=== PATIENT | male | born 1950 | race Two or more races ===

== ENCOUNTER 2023-07-29 19:43 | Emergency (ER) | payer OTHER ==
[~2023-07-29] VITALS: Ht 170.2 cm; Wt 68.2 kg
[2023-07-29] MEDS ORDERED: DexAMETHasone SOD PHOS 10MG/1ML VIAL INJ IM ONE (20:30)
[2023-07-29] MEDS ORDERED: TETANUS-DIPTH-ACEL PERTUSSIS 0.5ML SYR Tdap IM ONE (20:30)
[2023-07-29] MEDS ORDERED: KETOROLAC TROMETH 60MG/2ML VIAL IM ONE (20:30)
[2023-07-29] MEDS ORDERED: CEPH250C PO (20:38)
[2023-07-29] MEDS ORDERED: ACET500T58 PO (20:38)
[2023-07-30 01:38] VITALS: BP 154/79; PULSE 92; RESP 17; TEMP 98; O2SAT 98
== END 2023-07-30 01:47 | disposition home or self-care (01) ==
LOC: ER 19:47
DX: S80.862A Insect bite (nonvenomous), left lower leg, initial encounter (principal); S80.861A Insect bite (nonvenomous), right lower leg, initial encounter; L08.89 Other specified local infections of the skin and subcutaneous tissue; W57.XXXA Bitten or stung by nonvenomous insect and other nonvenomous arthropods, initial encounter; Y93.89 Activity, other specified; Y92.89 Other specified places as the place of occurrence of the external cause; Y99.8 Other external cause status
CPT/HCPCS: 90471; 90715; 96372; 99284; J1100; J1885

== ENCOUNTER 2025-06-17 23:47 | Emergency (ER) | payer OTHER ==
[~2025-06-17] VITALS: Ht 160 cm; Wt 70.5 kg
[~2025-06-17 23:47] MED LIST: ACET500T58 PO; CEPH250C PO
[2025-06-17 23:51] VITALS: BP 159/97; PULSE 92; RESP 18; TEMP 98.6; O2SAT 93
[2025-06-18] MEDS ORDERED: SULFAMETHOX W/TRIMETH(800/160MG) DS TAB PO ONE (02:45)
[2025-06-18] MEDS ORDERED: BACDST PO (02:46)
[2025-06-18] MEDS ORDERED: MUPI2CRE17 EX (02:47)
--- NOTE | 2025-06-18 03:43 | ED.PDOC ---
History of Present Illness HPI Comments 74 y/o M presents with c/c red rash patches to his thighs, right-upper back, and left foot. Poor historian. Endorses on ongoing symptoms for an extensive duration of time. States on being told on having shingles. Denies any fever, chills, pain or further associated symptoms. Chief Complaint: Rash Time Seen by MD: 02:40 Reviewed Notes: Nurses Notes, Medications, Allergies Allergies: Coded Allergies: Penicillins (Verified Allergy, Unknown, 07/29/23) Home Meds Active Scripts Mupirocin Calcium (Topical) (MUPIROCIN) 2 % Cre, 2 % EX Q6HP for 10 Days, #10 CRE Prov:ROOSEVELT FOURNIER MD 06/18/25 Sulfamethoxazole W/Trimethopri (Bactrim Ds Tablet) 1 Tab Tb, 1 TAB PO BID for 7 Days, #14 TAB Prov:ROOSEVELT FOURNIER MD 06/18/25 Acetaminophen (Acetaminophen) 500 Mg Tab, 500 MG PO Q4HP PRN, #30 TAB Prov:GEO YAÑEZ PAC 07/29/23 Cephalexin (KEFLEX CAPSULE) 250 Mg Cp, 1 CAP PO QID for 7 Days, #28 CAP Prov:GEO YAÑEZ PAC 07/29/23 Information Source: Patient Mode of Arrival: Ambulatory Past Medical History PAST MEDICAL HISTORY: Denies Surgical History: Denies all surgeries Family History Family History: Reviewed,noncontributory to illness, No family hx of Cancer, No family hx of DM, No family hx of Heart esther, No family hx of HTN, No family hx ofKidney esther, No family hx of Liver esther, No family hx of Lung esther, No family hx of Stroke Social History Smoker: Non-Smoker Alcohol: Denies ETOH Use Drugs: Denies Drug Use Lives In: Home All Other Systems: Reviewed and Negative (As per HPI) Physical Exam General Appearance: No Apparent Distress, Normal HEENT: Normal ENT Inspection, Pharynx Normal, TMs Normal Neck: Full Range of Motion, Non-Tender, Normal, Normal Inspection Respiratory: Chest Non-Tender, Lungs Clear, No Accessory Muscle Use, No Respiratory Distress, Normal Breath Sounds Cardiovascular: No Edema, No JVD, No Murmur, No Gallop, Normal Peripheral Pulses, Regular Rate/Rhythm Breast Exam: Deferred Gastrointestinal: No Organomegaly, Non Tender, No Pulsatile Mass, Normal Bowel Sounds, Soft Genitalia: Deferred Pelvic: Deferred Rectal: Deferred Extremities: No calf tenderness, Normal capillary refill, Normal inspection, Normal range of motion, Non-tender, No pedal edema Musculoskeletal : Apperance: Normal Neurologic: Alert, weight shifter II-XII nml as Tested, No Motor Deficits, Normal Affect, Normal Mood, No Sensory Deficits Cerebellar Function: Normal Reflexes: Normal Skin: Dry, Normal Color, Rash (2cm diameter erythema to right thigh), Warm Lymphatic: No Adenopathy Was a procedure done? Was a procedure done?: No Differential Dx Considerations may include: dermatitis, cellulitis, among others X-Ray, Labs, Meds, VS Vital Signs Date Time Temp Pulse Resp B/P (MAP) Pulse Ox O2 Delivery O2 Flow Rate FiO2 06/17/25 23:51 98.6 92 18 159/97 93 98.6 Time of 1ST Reevaluation: 03:10 Reevaluation 1ST: Unchanged Patient Education/Counseling: Diagnosis, Treatment, Need For Follow Up Family Education/Counseling: No Family Present SEPSIS Sepsis Screen Date sepsis recognized/suspect: Jun 17, 2025 Time Sepsis recognized/suspect: 2350 Recent Procedure: No On Antibiotic Therapy: No Respiratory Rate >20: No Heart Rate >90: Yes Temp<36 C (96.8 F) or >38.3 C: No SBP <90 or MAP <65 mmHG: No New Acute Mental Status Change: No Is the patient on CPAP, BIPAP,: No Vital Signs Date Time Temp Pulse Resp B/P (MAP) Pulse Ox O2 Delivery O2 Flow Rate FiO2 06/17/25 23:51 98.6 92 18 159/97 93 98.6 Departure 1 Departure Time of Disposition: 05:00 Impression: Primary Impression: Cellulitis of right thigh Disposition: HOME / SELF CARE / HOMELESS Condition: Stable Additional Instructions: Follow up with your primary physician Return to the Emergency Department for any worsening symptoms or concerns e-Prescriptions Mupirocin Calcium (Topical) (MUPIROCIN) 2 % Cre 2 % EX Q6HP for 10 Days, #10 CRE Prov: ROOSEVELT FOURNIER MD 06/18/25 Sulfamethoxazole W/Trimethopri (Bactrim Ds Tablet) 1 Tab Tb 1 TAB PO BID for 7 Days, #14 TAB Prov: ROOSEVELT FOURNIER MD 06/18/25 Discharged With: Self Critical Care Note Critical Care Time?: No Stability Stability form required: No Heart Score Heart Score: Heart Score Response (Comments) Value History N/A 0 EKG N/A 0 Age N/A 0 Risk Factors N/A 0 Troponin N/A 0 Total 0 I personally scribed for ROOSEVELT FOURNIER MD ([email or web address]) on 06/18/25 at 03:43. Electronically submitted by Dustin Narvaez ([email or web address]). ROOSEVELT FOURNIER MD Jun 18, 2025 03:43
== END 2025-06-18 05:49 | disposition home or self-care (01) ==
LOC: ER 23:47
DX: L03.115 Cellulitis of right lower limb (principal); B02.9 Zoster without complications; Z88.0 Allergy status to penicillin

== ENCOUNTER 2025-07-10 14:25 | Emergency (ER) | payer OTHER ==
[~2025-07-10] VITALS: Ht 162.6 cm; Wt 73.8 kg
[~2025-07-10 14:25] MED LIST changes: +BACDST PO; +MUPI2CRE17 EX
--- NOTE | 2025-07-10 15:11 | ED.PDOC ---
History of Present Illness(SKN HPI Comments 74M PRESENTS TO THE ER W/ PRIOR MHX OF SHINGLES FOR THE C/C OF SHINGLES. PT C/O A POSSIBLE INSECT BITE TO THE LEFT BICEP AND THE RIGHT LOWER LEG. C/O ITCHING. NO OTHER COMPLAINT. Chief Complaint: Rash Time Seen by MD: 15:10 History of Present Illness: Nurses Notes, Medications, Allergies Allergies: Coded Allergies: Penicillins (Verified Allergy, Unknown, 07/29/23) Home Meds Active Scripts Mupirocin Calcium (Topical) (MUPIROCIN) 2 % Cre, 2 % EX Q6HP for 10 Days, #10 CRE Prov:ROOSEVELT FOURNIER MD 06/18/25 Sulfamethoxazole W/Trimethopri (Bactrim Ds Tablet) 1 Tab Tb, 1 TAB PO BID for 7 Days, #14 TAB Prov:ROOSEVELT FOURNIER MD 06/18/25 Acetaminophen (Acetaminophen) 500 Mg Tab, 500 MG PO Q4HP PRN, #30 TAB Prov:GEO YAÑEZ PAC 07/29/23 Cephalexin (KEFLEX CAPSULE) 250 Mg Cp, 1 CAP PO QID for 7 Days, #28 CAP Prov:GEO YAÑEZ PAC 07/29/23 Information Source: Patient Mode of Arrival: Ambulatory Severity: Moderate Timing: Hours Duration: Since onset, Hours Prehospital treatment: None Location: Arm, Leg Mechanism: Spontaneous Onset Developed: Rash Object: None Condition of Object: None Wound Type: None Immunization Status of Animal: NA Tetanus: Unknown History of: None Associated Signs and Symptoms: None Past Medical History PAST MEDICAL HISTORY: Denies Surgical History: Denies all surgeries Family History Family History: Reviewed,noncontributory to illness, Unknown Social History Smoker: Non-Smoker Alcohol: Denies ETOH Use Drugs: Denies Drug Use Lives In: Home Constitutional: denies: chills, diaphoresis, fatigue, fever, malaise, sweats, weakness, others EENTM: denies: blurred vision, double vision, ear bleeding, ear discharge, ear drainage, ear pain, ear ringing, eye pain, eye redness, hearing loss, mouth pain, mouth swelling, nasal discharge, nose bleeding, nose congestion, nose pain, photophobia, tearing, throat pain, throat swelling, voice changes, others Respiratory: denies: cough, hemoptysis, orthopnea, SOB at rest, shortness of breath, SOB with excertion, stridor, wheezing, others Cardiovascular: denies: chest pain, dizzy spells, diaphoresis, Dyspnea on exertion, edema, irregular heart beat, left arm pain, lightheadedness, palpitations, PND, syncope, others Gastrointestinal: denies: abdomen distended, abdominal pain, blood streaked bowels, constipated, diarrhea, dysphagia, difficulty swallowing, hematemesis, melena, nausea, poor appetite, poor fluid intake, rectal bleeding, rectal pain, vomiting, others Genitourinary: denies: burning, dysuria, flank pain, frequency, hematuria, incontinence, penile discharge, penile sore, pain, testicle pain, testicle swelling, urgency, others Neurological: denies: dizziness, fainting, headache, left sided numbness, left sided weakness, numbness, paresthesia, pre-existing deficit, right sided numbness, right sided weakness, seizure, speech problems, tingling, tremors, weakness, others Musculoskeletal: denies: back pain, gout, joint pain, joint swelling, muscle pain, muscle stiffness, neck pain, others Integumetry: reports: rash; denies: bruises, change in color, change in hair/nails, dryness, laceration, lesions, lumps, wounds, others Allergic/Immunocompromised: denies: Difficulty Healing, Frequent Infections, Hives, Itching, others Hematologic/Lymphatic: denies: anemia, blood clots, easy bleeding, easy bruising, swollen glands, others Endocrine: denies: excessive hunger, excessive sweating, excessive thirst, excessive urination, flushing, intolerance to cold, intolerance to heat, unexplained weight gain, unexplained weight loss, others Psychiatric: denies: anxiety, bipolar disorder, depression, hopeless, panic disorder, schizophrenia, sleepless, suicidal, others All Other Systems: Reviewed and Negative Physical Exam General Appearance: No Apparent Distress, Normal HEENT: Normal ENT Inspection, Pharynx Normal, TMs Normal Neck: Full Range of Motion, Non-Tender, Normal, Normal Inspection Respiratory: Chest Non-Tender, Lungs Clear, No Accessory Muscle Use, No Respiratory Distress, Normal Breath Sounds Cardiovascular: No Edema, No JVD, No Murmur, No Gallop, Normal Peripheral Pulses, Regular Rate/Rhythm Breast Exam: Deferred Gastrointestinal: No Organomegaly, Non Tender, No Pulsatile Mass, Normal Bowel Sounds, Soft Genitalia: Deferred Pelvic: Deferred Rectal: Deferred Extremities: No calf tenderness, Normal capillary refill, Normal inspection, Normal range of motion, Non-tender, No pedal edema Musculoskeletal : Apperance: Normal Neurologic: Alert, ios software engineer II-XII nml as Tested, No Motor Deficits, Normal Affect, Normal Mood, No Sensory Deficits Cerebellar Function: Normal Reflexes: Normal Skin: Dry, Normal Color, Warm Lymphatic: No Adenopathy Was a procedure done? Was a procedure done?: No Differential Diagnosis (INTG) Differential Diagnosis: Other X-Ray, Labs, Meds, VS Vital Signs Date Time Temp Pulse Resp B/P (MAP) Pulse Ox O2 Delivery O2 Flow Rate FiO2 07/10/25 14:26 98.0 103 16 143/83 95 98.0 X-Ray, Labs, Meds, VS Comment PATIENT LIKELY WITH LOCAL INFLAMMATORY RESPONSE FROM POSSIBLE INSECT BITE/STING. NO EVIDENCE OF SYSTEMIC REACTION SUCH SHORTNESS OF BREATH, DIFFUSE RASH, DROOLING, FACIAL/LIP SWELLING. DOUBTFUL FOR CELLULITIS GIVEN NO FEVER, MINIMAL ERYTHEMA, MINIMAL WARMTH. PATIENT REMAINS WITH MINIMAL SYMPTOMS. REMAINS HEMODYNAMICALLY STABLE. THOUGHT SAFE FOR DISCHARGE HOME. TYLENOL AND/OR MOTRIN AT HOME FOR PAIN. BENADRYL FOR ITCHINESS. HYDROCORTISONE FOR ITCHINESS. ICE/COLD COMPRESS FOR COMFORT. FOLLOW-UP WITH PRIMARY CARE DOCTOR IN 2-3 DAYS. RETURN TO ER NEEDED. Time of 1ST Reevaluation: 15:40 Reevaluation 1ST: Unchanged Patient Education/Counseling: Diagnosis, Treatment, Prognosis Family Education/Counseling: No Family Present SEPSIS Sepsis Screen Date sepsis recognized/suspect: Jul 10, 2025 Time Sepsis recognized/suspect: 1425 Recent Procedure: No On Antibiotic Therapy: No Respiratory Rate >20: No Heart Rate >90: Yes Temp<36 C (96.8 F) or >38.3 C: No SBP <90 or MAP <65 mmHG: No New Acute Mental Status Change: No Is the patient on CPAP, BIPAP,: No Vital Signs Date Time Temp Pulse Resp B/P (MAP) Pulse Ox O2 Delivery O2 Flow Rate FiO2 07/10/25 14:26 98.0 103 16 143/83 95 98.0 Departure 1 Departure Time of Disposition: 15:52 Impression: Primary Impression: Insect bite Qualified Codes: S50.869A - Insect bite (nonvenomous) of unspecified forearm, initial encounter; W57.XXXA - Bitten or stung by nonvenomous insect and other nonvenomous arthropods, initial encounter Disposition: HOME / SELF CARE / HOMELESS Condition: Stable e-Prescriptions Doxepin HCl (Antipruritic) (Doxepin Hydrochloride) 5 % Cre 5 % EX ONCE for 1 Day, #5 GRAMS 0 Refills Prov: JEREMIAS SMITH NP 07/10/25 Hydrocortisone Base (Hydrocortisone) 2.5 % Oin 1 APPLIC TOP BID for 10 Days, #30 GRAMS 0 Refills Prov: JEREMIAS SMITH NP 07/10/25 Loratadine (Loratadine) 10 Mg Tab 10 MG PO DAILY for 10 Days, #10 TAB 0 Refills Prov: JEREMIAS SMITH NP 07/10/25 Discharged With: Self Critical Care Note Critical Care Time?: No Stability Stability form required: No Heart Score Heart Score: Heart Score Response (Comments) Value History N/A 0 EKG N/A 0 Age N/A 0 Risk Factors N/A 0 Troponin N/A 0 Total 0 I personally scribed for JEREMIAS SMITH NP ([email or web address]) on 07/10/25 at 15:11. Electronically submitted by Eloy Ca ([email or web address]). JEREMIAS SMITH NP Jul 10, 2025 15:11
[2025-07-10 15:50] VITALS: BP 140/64; PULSE 80; RESP 18; TEMP 98.8; O2SAT 96
[2025-07-10] MEDS ORDERED: [UNRECOGNIZED DRUG - CODE] EX (15:56)
[2025-07-10] MEDS ORDERED: HYDR2.5O TOP (15:56)
[2025-07-10] MEDS ORDERED: LORA-1126 PO (15:56)
== END 2025-07-10 15:59 | disposition home or self-care (01) ==
LOC: ER 14:25
DX: S60.562A Insect bite (nonvenomous) of left hand, initial encounter (principal); S80.861A Insect bite (nonvenomous), right lower leg, initial encounter; L29.9 Pruritus, unspecified; Z88.0 Allergy status to penicillin; W57.XXXA Bitten or stung by nonvenomous insect and other nonvenomous arthropods, initial encounter; Y93.89 Activity, other specified; Y92.89 Other specified places as the place of occurrence of the external cause; Y99.8 Other external cause status